=== PATIENT | male | born 1955 | race Caucasian/White ===

== ENCOUNTER → 2017-03-13 | Day surgery (SDC) | payer BC | END | disposition home or self-care (01) | LOC: SDCH 03-06 13:27 | DX: Z12.11 Encounter for screening for malignant neoplasm of colon (principal); D12.6 Benign neoplasm of colon, unspecified; K57.30 Diverticulosis of large intestine without perforation or abscess without bleeding; I10 Essential (primary) hypertension; M19.90 Unspecified osteoarthritis, unspecified site; G89.29 Other chronic pain; M54.9 Dorsalgia, unspecified; F17.210 Nicotine dependence, cigarettes, uncomplicated; Z86.73 Personal history of transient ischemic attack (TIA), and cerebral infarction without residual deficits; Z86.010 Personal history of colon polyps | CPT/HCPCS: J2704 ==